=== PATIENT | female | born 1995 | race Caucasian/White ===

== ENCOUNTER 2018-06-06 00:15 | Emergency (ER) | payer BC ==
[~2018-06-06] VITALS: Ht 160 cm; Wt 90.0 kg
[2018-06-06 00:19] VITALS: BP 136/82
[2018-06-06] MEDS ORDERED: LIDOCAINE-MPF 1%, 5ML ONE (00:59)
[2018-06-06] MEDS ORDERED: LIDOCAINE-MPF 1%, 5ML INFIL ONE (01:00)
[2018-06-06] MEDS ORDERED: LIDOCAINE-MPF 1%, 2ML ONE (02:00)
[2018-06-06] MEDS ORDERED: DIPH,PERTUSS(ACELL),TET VAC/PF 0.5 ML IM-VACC ONE ×2 (02:00)
== END 2018-06-06 03:16 | disposition home or self-care (01) ==
LOC: ED 03:10
DX: S51.811A Laceration without foreign body of right forearm, initial encounter (principal); W25.XXXA Contact with sharp glass, initial encounter; Y93.89 Activity, other specified; Y92.89 Other specified places as the place of occurrence of the external cause; Y99.8 Other external cause status
CPT/HCPCS: 12032; 90471; 90715; 99284